=== PATIENT | male | born 2000 | race Caucasian/White ===

== ENCOUNTER 2020-09-19 21:08 | Emergency (ER) | payer MEDICAID, OTHER ==
[~2020-09-19] VITALS: Ht 172.7 cm; Wt 95.3 kg
[2020-09-19 21:15] VITALS: BP 151/80
[2020-09-19] MEDS ORDERED: ALBUTEROL 0.083% 2.5 MG/3 ML NEBU INH ONE (21:20)
[2020-09-19] MEDS ORDERED: ALBUTEROL SULFATE/IPRATROPIU 3 ML SOL IH ONE (21:20)
[2020-09-19] MEDS ORDERED: predniSONE 20 MG TAB PO ONE (21:20)
[2020-09-19] MEDS ORDERED: IBUP-2213 PO (21:43)
[2020-09-19] MEDS ORDERED: PRED20TA5 PO (21:43)
[2020-09-19] MEDS ORDERED: ALBU0.0912 IH (21:43)
[2020-09-19 21:58] VITALS: BP 148/76
== END 2020-09-19 21:58 | disposition home or self-care (01) ==
LOC: MED 21:08
DX: J45.909 Unspecified asthma, uncomplicated (principal)
CPT/HCPCS: 94640; 99283; J7512; J7613

== ENCOUNTER 2021-11-09 10:55 | Emergency (ER) | payer SELFPAY ==
[~2021-11-09] VITALS: Ht 172.7 cm; Wt 102.1 kg
[~2021-11-09 10:55] MED LIST: ALBU0.0912 IH; IBUP-2213 PO; PRED20TA5 PO
[2021-11-09 10:59] VITALS: BP 149/133
--- NOTE | 2021-11-09 11:01 | NUR ---
RT CALLED FOR BREATHING TX. ER MADE AWARE
--- NOTE | 2021-11-09 11:01 | NUR ---
PT AMBULATED TO BED 9 WITH STEADY GAIT
[2021-11-09] MEDS ORDERED: predniSONE 20 MG TAB PO ONE (11:05)
[2021-11-09] MEDS ORDERED: ALBUTEROL SULFATE/IPRATROPIU 3 ML SOL IH ONE ×2 (11:05→12:00)
--- NOTE | 2021-11-09 11:07 | NUR ---
RT BEDSIDE PROVIDING PATIENT WITH BREATHING TX
--- NOTE | 2021-11-09 11:09 | NUR ---
21 Y/O MALE BIB SELF C/O ASHTMA EXACERBATION X1DAY. PT STATES HE USED INHALER, STATES THAT THE INHALER IS WITHOUT PRESCRIPTION AND WITH NO RELIEF, AUDIBLE WHEEZING THROUGHOUT. PLACED ON HIGH FOWLERS POSITION. PT PLACED ON COVERSTITCH ELASTIC ATTACHER, STATES CHEST PAIN 5/10. HR 134 IN TRIAGE, HR NOW 123, SPO2 93% ON RAIN TRIAGE, NOW 97% ON ROOM AIR, LABORED BREATHING WITH ACCESORRY MUSCLE USE, BP 149/133. MD, CHARGE, AND RT MADE AWARE. DENIES FEVER/CHILLS. DENIES N/V/D. PMH: ASTHMA NKA
--- NOTE | 2021-11-09 11:12 | NUR ---
DR GUERRIER AT BEDSIDE
[2021-11-09] MEDS ORDERED: MAG SULF 2000 MG/WATER PREMIX 50 ML IV ONE (11:15)
[2021-11-09] MEDS ORDERED: methylPREDNISolone SS 125 MG/2 ML VIAL IVP ONE (11:15)
--- NOTE | 2021-11-09 11:36 | NUR ---
XRAY AT BEDSIDE
--- NOTE | 2021-11-09 12:06 | NUR ---
RT BEDSIDE PROVIDING ANOTHER BREATHING TX
--- NOTE | 2021-11-09 12:17 | NUR ---
PT MADE COMFORTABLE GIVEN A BLANKET, NOTED NO WHEEZING.
[2021-11-09] MEDS ORDERED: ALBU0.0912 IH (13:14)
[2021-11-09] MEDS ORDERED: PRED20TA5 PO (13:14)
[2021-11-09 13:28] VITALS: BP 130/69
--- NOTE | 2021-11-09 13:28 | NUR ---
Patient discharged with v/s stable. Written and verbal after care instructions given and explained. Patient alert, oriented and verbalized understanding of instructions. Ambulatory with steady gait. All questions addressed prior to discharge. ID band removed. Patient advised to follow up with PMD. Rx of PREDISONE AND ALBUTEROL given. Patient educated on indication of medication including possible reaction and side effects. Opportunity to ask questions provided and answered.
== END 2021-11-09 13:28 | disposition home or self-care (01) ==
LOC: MED 10:55
DX: J45.901 Unspecified asthma with (acute) exacerbation (principal); R07.89 Other chest pain; R06.2 Wheezing; Z79.899 Other long term (current) drug therapy
CPT/HCPCS: 71045; 93005; 94640; 96365; 96366; 96375; 99291; J2930; J3475; J7512; Q0092

== ENCOUNTER 2023-06-27 16:31 | Emergency (ER) | payer OTHER ==
[~2023-06-27] VITALS: Ht 172.7 cm; Wt 99.8 kg
[2023-06-27 17:21] VITALS: BP 141/91; PULSE 113; RESP 20; TEMP 97; O2SAT 94
[2023-06-27] MEDS ORDERED: ALBUTEROL SULFATE/IPRATROPIU 3 ML SOL IH ONE (17:35)
[2023-06-27] MEDS ORDERED: predniSONE 20 MG TAB PO ONE (17:35)
[2023-06-27 17:56] VITALS: PULSE 95; RESP 16; O2SAT 97
[2023-06-27] MEDS ORDERED: PRED20TA5 PO (18:32)
[2023-06-27] MEDS ORDERED: ALBU0.0912 IH (18:32)
[2023-06-27 18:50] VITALS: BP 141/91; PULSE 95; RESP 16; TEMP 97; O2SAT 94
[2023-06-27 18:57] LABS: FLU A ANTIGEN negative (NEGATIVE); FLU B ANTIGEN NEGATIVE (NEGATIVE)
== END 2023-06-27 18:50 | disposition home or self-care (01) ==
LOC: MED 16:31
DX: B34.9 Viral infection, unspecified (principal); Z20.822 Contact with and (suspected) exposure to COVID-19; J45.901 Unspecified asthma with (acute) exacerbation; Z79.1 Long term (current) use of non-steroidal anti-inflammatories (NSAID); Z79.899 Other long term (current) drug therapy
CPT/HCPCS: 71045; 87426; 87804; 94640; 99284; J7512